=== PATIENT | female | born 1945 | race Caucasian/White ===

== ENCOUNTER → 2018-04-23 14:45 | Outpatient (CLI) | payer MEDICARE, SELFPAY ==
[2018-04-23 15:18] LABS: Hematocrit 31.1 % (36-46); Hemoglobin 10.5 g/dL (12.0-16.0); Mean Corpuscular HGB Conc 33.7 % (30-36); Mean Corpuscular Hemoglobin 28.2 PG (26-34); Mean Corpuscular Volume 83.5 fL (80-100); Platelet Count 343 X10^3/uL (150-400); Red Blood Cell Count 3.73 X10^6/uL (4.0-5.2); Red Cell Distribution Width 17.8 % (11.6-14.8); White Blood Cell Count 6.4 X10^3/uL (4.5-11.0)
[2018-04-23 15:19] LABS: Add Manual Diff / Slide Review YES
[2018-04-23 15:31] LABS: Alanine Aminotransferase 36 IU/L (9-52); Albumin 4.3 g/dL (3.5-5.0); Albumin Globulin Ratio 1.5 (1.0-2.8); Alkaline Phosphatase 98 U/L (38-126); Aspartate Aminotransferase 41 IU/L (14-36); Bilirubin Total 1.4 mg/dL (0.2-1.3); Blood Urea Nitrogen 15 mg/dL (7-17); Calcium 9.4 mg/dL (8.4-10.2); Carbon Dioxide 34 mmol/L (22-32); Chloride 95 mmol/L (98-107); Estimated Glomerular Filt Rate > 60.0 mL/min (>60); Globulin 2.9 g/dL (1.7-4.1); Glucose 100 mg/dL (80-110); HEMOLYSIS 17 (0-50); Potassium 4.1 mmol/L (3.4-5.1); Sodium 134 mmol/L (137-145); Total Protein 7.2 g/dL (6.3-8.2)
[2018-04-23 15:47] LABS: Neutrophils Absolute Manual 3776 /uL (3000-5900); Nucleated Red Blood Cells 1 #/Diff; Total Cells Counted 100
[2018-04-23 15:48] LABS: Anisocytosis 1+; Polychromasia 3+
== END ==
PROVIDERS: Family Provider Internal Medicine; PCP Internal Medicine; Visit Provider Internal Medicine
DX: D75.81 Myelofibrosis (principal)
CPT/HCPCS: 36415; 80053; 84443; 85025

== ENCOUNTER → 2018-06-02 13:56 | Outpatient (CLI) | payer MEDICARE, SELFPAY ==
[2018-06-02 14:32] LABS: Hematocrit 31.7 % (36-46); Hemoglobin 10.7 g/dL (12.0-16.0); Mean Corpuscular HGB Conc 33.9 % (30-36); Mean Corpuscular Hemoglobin 27.9 PG (26-34); Mean Corpuscular Volume 82.3 fL (80-100); Platelet Count 377 X10^3/uL (150-400); Red Blood Cell Count 3.85 X10^6/uL (4.0-5.2); Red Cell Distribution Width 17.6 % (11.6-14.8); White Blood Cell Count 6.9 X10^3/uL (4.5-11.0)
[2018-06-02 14:33] LABS: Add Manual Diff / Slide Review YES
[2018-06-02 14:51] LABS: Alanine Aminotransferase 27 IU/L (9-52); Albumin 4.3 g/dL (3.5-5.0); Albumin Globulin Ratio 1.5 (1.0-2.8); Alkaline Phosphatase 90 U/L (38-126); Aspartate Aminotransferase 34 IU/L (14-36); Bilirubin Total 1.4 mg/dL (0.2-1.3); Blood Urea Nitrogen 18 mg/dL (7-17); Calcium 9.3 mg/dL (8.4-10.2); Carbon Dioxide 31 mmol/L (22-32); Chloride 97 mmol/L (98-107); Estimated Glomerular Filt Rate > 60.0 mL/min (>60); Globulin 2.9 g/dL (1.7-4.1); Glucose 118 mg/dL (80-110); HEMOLYSIS < 15 (0-50); Potassium 4.1 mmol/L (3.4-5.1); Sodium 137 mmol/L (137-145); Total Protein 7.2 g/dL (6.3-8.2)
[2018-06-02 15:42] LABS: T4 Total Thyroxine 7.06 ug/dL (5.5-11.0)
[2018-06-02 15:56] LABS: Thyroid Stimulating Hormone 2.11 uIU/mL (0.47-4.68)
[2018-06-02 17:22] LABS: Neutrophils Absolute Manual 4554 /uL (3000-5900); Total Cells Counted 100
[2018-06-02 17:23] LABS: Anisocytosis 1+; Ovalocytes 1+; Poikilocytosis 1+; Tear Drop Cells 1+
== END ==
PROVIDERS: Family Provider Internal Medicine; PCP Internal Medicine; Visit Provider Nurse Practitioner Gerontology
DX: E03.9 Hypothyroidism, unspecified (principal); D47.3 Essential (hemorrhagic) thrombocythemia
CPT/HCPCS: 36415; 80053; 84436; 84443; 85025

== ENCOUNTER → 2018-06-17 13:28 | Outpatient (CLI) | payer MEDICARE, SELFPAY ==
--- NOTE | 2018-06-17 | DI.CT.S_ITS ---
PROCEDURE: CT MASTOID TEMPORAL INDICATIONS: MYELOFIBROSIS COMPARISON: [facility], CT, C-SPINE WITHOUT CONTRAST, 01/01/2018, 15:10. TECHNIQUE: Noncontrast 0.6 mm thick direct axial and coronal sections acquired through each temporal bone separately. FINDINGS: Image quality: Excellent. RIGHT: External auditory canal: Canal has a normal appearance. Middle ear: The middle ear structures, including the ossicles and tympanic membrane, appear normal. No abnormal fluid or soft tissue density. Inner ear: Inner ear is normally formed and appears unremarkable. Facial nerve appears normal throughout is course. Mastoids: Mastoid air cells are clear. LEFT: External auditory canal: Canal has a normal appearance. Middle ear: The middle ear structures, including the ossicles and tympanic membrane, appear normal. No abnormal fluid or soft tissue density. Inner ear: Inner ear is normally formed and appears unremarkable. Facial nerve appears normal throughout its course. Mastoids: Mastoid air cells are clear. MISCELLANEOUS: Visualized surrounding bones appear unremarkable. Visualized intracranial structures, including the cerebellopontine angle cisterns, appear normal. The central skull base and visualized bones of the cervical spine demonstrate an abnormal appearance, with a diffusely chalky appearance, with areas of demineralization. IMPRESSION: The central skull base and the visualized cervical spine demonstrate an abnormal appearance to the bone marrow, with a chalky, coarse appearance, with areas of demineralization. The abnormal appearance of the cervical spine is better demonstrated on the prior CT dated 01/01/18. No imaging explanation is found for mastoid pain. Dictated by: Cesar Martinez M.D. on 06/17/2018 at 14:14 Approved by: Cesar Martinez M.D. on 06/17/2018 at 14:20
== END ==
PROVIDERS: Family Provider Internal Medicine; PCP Internal Medicine; Visit Provider Specialist
DX: D47.1 Chronic myeloproliferative disease (principal); H90.3 Sensorineural hearing loss, bilateral
CPT/HCPCS: 70480

== ENCOUNTER → 2018-07-28 15:23 | Outpatient (CLI) | payer MEDICARE, SELFPAY ==
[2018-07-28 17:09] LABS: Hemoglobin 10.3 g/dL (12.0-16.0)
[2018-07-28 17:22] LABS: Mean Corpuscular HGB Conc 33.3 % (30-36); Mean Corpuscular Hemoglobin 27.5 PG (26-34); Mean Corpuscular Volume 82.8 fL (80-100); Platelet Count 381 X10^3/uL (150-400); Red Blood Cell Count 3.74 X10^6/uL (4.0-5.2); Red Cell Distribution Width 17.9 % (11.6-14.8); White Blood Cell Count 6.5 X10^3/uL (4.5-11.0)
[2018-07-28 17:29] LABS: Alanine Aminotransferase 23 IU/L (9-52); Albumin 4.3 g/dL (3.5-5.0); Albumin Globulin Ratio 1.6 (1.0-2.8); Alkaline Phosphatase 84 U/L (38-126); Aspartate Aminotransferase 26 IU/L (14-36); Bilirubin Total 1.3 mg/dL (0.2-1.3); Blood Urea Nitrogen 14 mg/dL (7-17); Calcium 9.3 mg/dL (8.4-10.2); Carbon Dioxide 34 mmol/L (22-32); Chloride 97 mmol/L (98-107); Estimated Glomerular Filt Rate > 60.0 mL/min (>60); Globulin 2.7 g/dL (1.7-4.1); Glucose 85 mg/dL (80-110); HEMOLYSIS < 15 (0-50); Sodium 136 mmol/L (137-145)
[2018-07-28 18:26] LABS: Neutrophils Absolute Manual 3250 /uL (3000-5900); Nucleated Red Blood Cells 5 #/Diff; Total Cells Counted 100
[2018-07-28 18:32] LABS: Anisocytosis 1+; Poikilocytosis 2+; Polychromasia 2+; Schistocytes 1+
[2018-07-28 18:33] LABS: Tear Drop Cells 2+
== END ==
PROVIDERS: Family Provider Internal Medicine; PCP Internal Medicine; Visit Provider Internal Medicine
DX: D69.3 Immune thrombocytopenic purpura (principal); D75.81 Myelofibrosis; R16.1 Splenomegaly, not elsewhere classified
CPT/HCPCS: 36415; 80053; 85025

== ENCOUNTER → 2018-07-31 13:23 | Outpatient (CLI) | payer MEDICARE, SELFPAY ==
--- NOTE | 2018-07-31 | DI.CT.S_ITS ---
PROCEDURE: CT ABDOMEN PELVIS W CON INDICATIONS: Myelofibrosis TECHNIQUE: After the administration of oral and intravenous contrast, 5 mm thick sections acquired from the diaphragms to the symphysis. 5 mm thick coronal and sagittal reformats were performed. For radiation dose reduction, the following was used: automated exposure control, adjustment of mA and/or kV according to patient size. COMPARISON: [facility], CT, ABDOMEN/PELVIS WITH CONTRAST, 02/22/2017, 1:06. FINDINGS: Image quality: Excellent. ABDOMEN: Lung bases: Right greater than left bibasilar pulmonary scarring is present, as before. Mucous plugging within the right lower lobe is present. Heart size is normal. Solid organs: Liver is enlarged, measuring 21 cm craniocaudal. Right and left hepatic lobe hemangiomata are present, as before. Few scattered subcentimeter hepatic cysts are unchanged.. Gallbladder demonstrates multiple calculi within its lumen. Biliary system is non-dilated. Pancreas enhances normally. Spleen is enlarged, as before, currently measuring roughly 818 cm craniocaudal. The No adrenal nodules. Kidneys are normal in size and enhancement, without hydronephrosis. Peritoneum and bowel: Stomach, small bowel, and colon loops are normal in caliber and wall thickness. Normal appendix. No free fluid or air. Nodes and vessels: No retroperitoneal or mesenteric adenopathy. Aorta and inferior vena cava are normal in caliber. Miscellaneous: No ventral hernias. PELVIS: Genitourinary: Bladder wall thickness is normal. Miscellaneous: No inguinal hernias or adenopathy. Decreased right inguinal soft tissue density is present. Bones: No suspicious bony lesions. No vertebral body compression fractures. IMPRESSION: 1. No change in hepatosplenomegaly. 2. Decreasing right inguinal soft tissue density. 3. Right lower lobe mucous plugging. 4. Normal appendix. Dictated by: Liliane Zelaya M.D. on 07/31/2018 at 14:49 Approved by: Liliane Zelaya M.D. on 07/31/2018 at 14:55
== END ==
PROVIDERS: Family Provider Internal Medicine; PCP Internal Medicine; Visit Provider Internal Medicine
DX: R16.2 Hepatomegaly with splenomegaly, not elsewhere classified (principal); D75.81 Myelofibrosis
CPT/HCPCS: 74177; Q9967

== ENCOUNTER → 2018-08-31 14:01 | Outpatient (CLI) | payer MEDICARE, SELFPAY ==
[2018-08-31 14:37] LABS: Hematocrit 31.8 % (36-46); Hemoglobin 10.7 g/dL (12.0-16.0); Mean Corpuscular HGB Conc 33.7 % (30-36); Mean Corpuscular Hemoglobin 27.8 PG (26-34); Mean Corpuscular Volume 82.4 fL (80-100); Platelet Count 422 X10^3/uL (150-400); Red Blood Cell Count 3.86 X10^6/uL (4.0-5.2); Red Cell Distribution Width 18.2 % (11.6-14.8); White Blood Cell Count 6.4 X10^3/uL (4.5-11.0)
[2018-08-31 14:39] LABS: Add Manual Diff / Slide Review YES; Alanine Aminotransferase 31 IU/L (9-52); Albumin 4.4 g/dL (3.5-5.0); Albumin Globulin Ratio 1.5 (1.0-2.8); Alkaline Phosphatase 84 U/L (38-126); Aspartate Aminotransferase 30 IU/L (14-36); BUN Creatinine Ratio 26.7 (6-22); Bilirubin Total 1.1 mg/dL (0.2-1.3); Blood Urea Nitrogen 16 mg/dL (7-17); Calcium 9.2 mg/dL (8.4-10.2); Carbon Dioxide 30 mmol/L (22-32); Chloride 97 mmol/L (98-107); Estimated Glomerular Filt Rate > 60.0 mL/min (>60); Globulin 2.9 g/dL (1.7-4.1); Glucose 117 mg/dL (80-110); HEMOLYSIS < 15 (0-50); Potassium 4.2 mmol/L (3.4-5.1); Sodium 137 mmol/L (137-145); Total Protein 7.3 g/dL (6.3-8.2)
[2018-08-31 15:23] LABS: Neutrophils Absolute Manual 4480 /uL (3000-5900); Total Cells Counted 100
[2018-08-31 15:24] LABS: Nucleated Red Blood Cells 1 #/Diff
[2018-08-31 15:25] LABS: Anisocytosis 2+; Hypochromasia 1+; Microcytosis 1+; Polychromasia 1+; Tear Drop Cells 2+
== END ==
PROVIDERS: Family Provider Internal Medicine; PCP Internal Medicine
DX: D47.3 Essential (hemorrhagic) thrombocythemia (principal); D75.81 Myelofibrosis; R16.1 Splenomegaly, not elsewhere classified
CPT/HCPCS: 36415; 80053; 85025

== ENCOUNTER → 2018-12-01 15:00 | Outpatient (CLI) | payer MEDICARE, SELFPAY ==
[2018-12-01 15:29] LABS: Alanine Aminotransferase 33 IU/L (9-52); Albumin 4.5 g/dL (3.5-5.0); Albumin Globulin Ratio 1.7 (1.0-2.8); Alkaline Phosphatase 80 U/L (38-126); Aspartate Aminotransferase 25 IU/L (14-36); BUN Creatinine Ratio 31.7 (6-22); Bilirubin Total 1.2 mg/dL (0.2-1.3); Blood Urea Nitrogen 19 mg/dL (7-17); Calcium 9.4 mg/dL (8.4-10.2); Carbon Dioxide 31 mmol/L (22-32); Chloride 96 mmol/L (98-107); Estimated Glomerular Filt Rate > 60.0 mL/min (>60); Globulin 2.6 g/dL (1.7-4.1); Glucose 93 mg/dL (80-110); HEMOLYSIS < 15 (0-50); Potassium 4.1 mmol/L (3.4-5.1); Sodium 135 mmol/L (137-145); Total Protein 7.1 g/dL (6.3-8.2)
[2018-12-01 15:36] LABS: Add Manual Diff / Slide Review NO; Basophils Absolute Auto 200 /uL (0-100); Eosinophils Absolute Auto 0 /uL (0-450); Eosinophils Percent Auto 0.2 % (2-4); Hematocrit 30.8 % (36-46); Hemoglobin 10.6 g/dL (12.0-16.0); Lymphocytes Absolute Auto 1200 /uL (1100-4500); Mean Corpuscular HGB Conc 34.3 % (30-36); Mean Corpuscular Hemoglobin 27.8 PG (26-34); Mean Corpuscular Volume 80.9 fL (80-100); Monocytes Absolute Auto 1100 /uL (0-900); Neutrophils Absolute Auto 5200 /uL (1500-7000); Neutrophils Percent Auto 66.8 % (50-75); Platelet Count 475 X10^3/uL (150-400); Red Blood Cell Count 3.81 X10^6/uL (4.0-5.2); Red Cell Distribution Width 18.2 % (11.6-14.8); White Blood Cell Count 7.7 X10^3/uL (4.5-11.0)
== END ==
PROVIDERS: Family Provider Internal Medicine; PCP Internal Medicine
DX: D47.3 Essential (hemorrhagic) thrombocythemia (principal); R16.1 Splenomegaly, not elsewhere classified
CPT/HCPCS: 36415; 80053; 85025

== ENCOUNTER → 2019-03-29 13:53 | Outpatient (CLI) | payer MEDICARE, SELFPAY ==
--- NOTE | 2019-03-29 15:18 | DIET.PN ---
Ht. 5?2 Wt: 85# BMI: 15.5 (very low) Current condition: Myelofibrosis, Irritable Bowel Syndrome-unspecified type, Unintended Wt. Loss Med Hx: 4.5y since condition dx, losing wt since then though wt has been below 95# for a year or longer, feels she is maintaining it fairly well with small frequent meals. Primary concern: Abd px limits the ability to pass BM Has 1 painful BM/week, usually small cracked pellets, constipated type. Usual Intake: B: 1 scrambled egg c 1/8 avocado; L: 1 sl white bread c 1.5oz tuna or salmon or PB&J, herbal tea; D: noodles c peas; Sn: Odwalla Soy Chocolate Protein drink, Gatorade, jello, crackers and cheese, banana. Meds/Supps: Opioids, stool softeners, Mag Citrate 500mg, gaviscon, MVI Assessment: MR is experiencing infrequent, painful BMs d/t being chronically dehydrated complicated by opioid use, myelofibrosis causing enlarged spleen and liver partially blocking transit, and reduced activity levels, all reducing gut motility. Additionally, increased fat is added to diet to slow wt loss, which increases satiety of pt who experiences early satiety. Interventions: To address infrequent, painful BMs: Continue Mag Citrate 500mg every evening to keep on top of BM regularity, stool softeners prn. Continue c probiotic supp and include 1/4c Elise?s yogurt or kefir (dairy or soy)/d as food based probiotic. Introduce 1 serving every 3 d for a week and advance to daily as tolerated. Start colon massage technique and bicycle movements c legs daily to aid in L.I. motility since you are sedentary and have enlarged spleen and liver (near curving segments of LI). Hydration will help reduce px and keep stool softer. Pt currently only drinking small amts of Odwalla shake and sips of water c meds (under 20 oz/d). Set goal to get at least 32oz by having water cups with straws by bed, desk, and other frequented areas. Take a sip during each commercial break or at each new book chapter. Pt would like to drink hot chocolate more frequently to increase fluids and calories, also adding chicken stock to dinner of noodles c peas. To address unintended wt loss: Focus on adding protein to diet rather than fat (animal meat, eggs, dairy if tolerated, ground nuts and seeds, beans as tolerated). Though added fat is fine, too, just know it can cause satiety. Monitoring/Evaluation: Pt will follow up c RD in two weeks to report progress and symptoms.
== END ==
PROVIDERS: Family Provider Internal Medicine; PCP Internal Medicine; Visit Provider Physician Assistant
DX: R63.4 Abnormal weight loss (principal); D75.81 Myelofibrosis
CPT/HCPCS: 97802

== ENCOUNTER → 2019-04-07 14:08 | Outpatient (CLI) | payer MEDICARE, SELFPAY ==
--- NOTE | 2019-04-07 | DI.RAD.S_ITS ---
PROCEDURE: XR PELVIS 1-2V INDICATIONS: LOW BACK PAIN TECHNIQUE: A single frontal view of the pelvis acquired. COMPARISON: [facility], CT, CT ABDOMEN PELVIS W CON, 07/31/2018, 14:06. [facility], CR, L-SPINE 2-3 VIEWS, 01/20/2017, 14:49. [facility], CR, ABDOMEN ACUTE SERIES, 02/24/2017, 4:10. FINDINGS: Bones: No fractures or dislocations. No focal suspicious bony lesions. There is a subtle permeative elevated radiodensity throughout the osseous elements included on this study but best seen at the obturator rings and each femur through the femoral heads. Soft tissues: Visualized bowel gas pattern is normal. No suspicious soft tissue calcifications. IMPRESSION: Unusual increased radiodensity of the osseous elements of the pelvis, a relatively subtle finding, and generalized rather than focal. The appearance may represent a manifestation of myelodysplastic syndrome. Please correlate clinically. Dictated by: Marty Cisneros M.D. on 04/07/2019 at 15:40 Approved by: Marty Cisneros M.D. on 04/07/2019 at 15:43
--- NOTE | 2019-04-07 | DI.RAD.S_ITS ---
PROCEDURE: XR LUMBAR SPINE 2-3V INDICATIONS: LOW BACK PAIN TECHNIQUE: 3 views of the lumbar spine were acquired. COMPARISON: [facility], CT, ABDOMEN/PELVIS WITH CONTRAST, 02/22/2017, 1:06. [facility], CR, L-SPINE 2-3 VIEWS, 11/03/2017, 14:26. [facility], CR, L-SPINE 2-3 VIEWS, 01/20/2017, 14:49. FINDINGS: Bones: 5 [id number] vertebrae are present. There is levoscoliotic bony alignment, moderate in severity, centered at L1.. No vertebral body compression fractures. No suspicious bony lesions. Soft tissues: Overlying bowel gas pattern is normal. No suspicious soft tissue calcifications. IMPRESSION: Chronic levoscoliosis centered at L1. Facet gallstones are unusually low within the abdomen, centered at over the right lower quadrant. These have been documented to be in that same position on CT scanning 02/22/17. Considering the advanced age the radiodensity of the osseous elements of the axial and appendicular skeleton are increased from what is generally seen, in a pattern also seen clearly on additional plain film imaging obtained today. Some form of myeloproliferative disorder would be suspected such as myelofibrosis. No associated fracture is seen. Dictated by: Marty Cisneros M.D. on 04/07/2019 at 16:03 Approved by: Marty Cisneros M.D. on 04/07/2019 at 16:06
--- NOTE | 2019-04-07 | DI.RAD.S_ITS ---
PROCEDURE: XR HUMERUS LT 2V INDICATIONS: L SHOULDER PAIN TECHNIQUE: 2 views of the humerus were acquired. COMPARISON: None. FINDINGS: Bones: No fractures or dislocations. No suspicious bony lesions. Soft tissues: No suspicious soft tissue calcifications. IMPRESSION: No trauma to the humerus is found. Dictated by: Marty Cisneros M.D. on 04/07/2019 at 16:06 Approved by: Marty Cisneros M.D. on 04/07/2019 at 16:06
--- NOTE | 2019-04-07 | DI.RAD.S_ITS ---
PROCEDURE: XR SHOULDER LT MIN 2V INDICATIONS: L SHOULDER PAIN TECHNIQUE: 3 views of the shoulder were acquired. COMPARISON: [facility], SHOULDER MINIMUM 2 VIEW LEFT, 06/05/2016, 10:37. [facility], CHEST 2 VIEW, 05/19/2015, 9:58. [facility], SHOULDER MINIMUM 2VIEW RIGHT, 06/05/2016, 10:37. [facility], SHOULDER MINIMUM 2VIEW RIGHT, 01/29/2008, 12:13. FINDINGS: Bones: No fractures or dislocations. No suspicious bony lesions involving the chest wall but there is relative sclerosis through the humeral head at its upper and middle thirds. The. Visualized ribs appear intact. Soft tissues: No suspicious soft tissue calcifications. IMPRESSION: Source of shoulder pain is not identified as a new abnormality. 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 Note is made of relative sclerosis is over the humeral head through its upper and middle thirds and is unusual symptomatology is present potentially a manifestation of infection or neoplasm shoulder MRI without and with contrast would be recommended. Dictated by: Marty Cisneros M.D. on 04/07/2019 at 15:37 Approved by: Marty Cisneros M.D. on 04/07/2019 at 15:39
== END ==
PROVIDERS: Family Provider Internal Medicine; PCP Internal Medicine; Visit Provider Internal Medicine
DX: M54.5 Low back pain (principal); M25.512 Pain in left shoulder; M19.012 Primary osteoarthritis, left shoulder; M41.86 Other forms of scoliosis, lumbar region; K80.80 Other cholelithiasis without obstruction
CPT/HCPCS: 72100; 72170; 73030; 73060

== ENCOUNTER → 2019-06-29 15:00 | Oncology outpatient (ONC) | payer MEDICARE, SELFPAY ==
--- NOTE | 2018-02-09 14:35 | ONC.APRN.PN ---
PN -Subjective Interval history: Stefani is a 72-year-old female who carries a diagnosis of essential thrombocythemia previously treated with jakafi until November 2016 when she determined she was not feeling better with jakafi was in fact feeling worse. She elected to discontinue more aggressive treatment and transitioned to, per her report, symptom management only. Home Medications and Allergies Home Medications Medication Instructions Recorded Confirmed Type [Probiotics] #0 06/05/16 History [CBD 3%] PRN #0 09/16/16 History caffeine [No Doz] 50 mg PO QDAY #0 11/06/16 History ibuprofen 200 mg PO PRN PRN #0 12/23/16 History morphine concentrate 0.1 - 0.5 mg PO PRN PRN #0 03/12/17 History oxycodone 5 mg PO Q6HP PRN #0 03/12/17 History [DE LA ROSA LAXATIVE] 1 PO Q DAY #0 11/28/17 History [TINCTURE] PO Q DAY PRN PRN #0 11/28/17 History multivitamin [Multiple Vitamins] 2 PO QDAY #0 11/28/17 History ranitidine HCl [Zantac] 150 mg PO QDAY #0 11/28/17 History simethicone [Gas-X Extra Strength] 125 mg PO #0 11/28/17 History venlafaxine [Effexor XR] 37.5 mg PO QDAY #0 11/28/17 History [CBD CREAM] #0 01/13/18 History Allergies Allergy/AdvReac Type Severity Reaction Status Date / Time latex Allergy Mild RASH Unverified 01/14/18 13:05 [address]ium [address] SCAN Unverified 01/14/18 13:05 CONTRAST erythromycin base Allergy Unknown OPHTH OINT Unverified 01/14/18 13:05 methocarbamol AdvReac Mild HEADACHE Unverified 01/14/18 13:05 tramadol AdvReac Mild HEADACHE Unverified 01/14/18 13:05 CHLORAHEXADINE AND CHLORAPREP Allergy Unknown RASH Uncoded 01/14/18 13:05
[2018-02-09 15:15] VITALS: BP 135/72; PULSE 73; RESP 16; TEMP 36.9; O2SAT 100
--- NOTE | 2018-02-13 08:47 | ONC.APRN.PN ---
Assessment and Plan (1) Essential (hemorrhagic) thrombocythemia Current visit: Yes Status: Acute (2) Splenomegaly Current visit: No Status: Acute 02/13/18 08:51 Stefani is a 72-year-old female with a history of essential thrombocytopenia presenting with symptomatic splenomegaly as well as symptomatic bony pain. She was previously treated with Jakafi until November of 2016. Note patient was only taking this medication intermittently is likely she did not receive the full therapeutic benefit. However she was feeling worse on the medication and elected to DC and pursue symptom management only. Dr Adam saw the pt 01/13/18 and recommeneded palliative radiation to spleen and bony areas. Stefani states her to sit in a car more than 5 or 10 min thus any travel outside of [place] is not possible. She did not consult with radiation oncology. She has no plans to seek care other than symptom management. Her primary care provider Dr. López has been doing an excellent job managing this patient's pain as well as meeting her stated goals of remaining mentally clear. She does not think the fentanyl patch 12 mcg is affective she has not decreased her use of breakthrough pain medication. I did discuss with the patient there are some studies that show sentinel patch is not effective in thin patient's, it does require some adipose tissue for absorption. Thus, she is likely not getting the full therapeutic benefit of the patch. However due to convenience of the patch she would like to continue recommend increasing dose until she is able to reduce the amount of breakthrough pain medication she requires. Also strongly recommend she stay on top of bowel meds. She is high risk for obstruction. Return to clinic in 3 months provider visit CBC CMP. Patient wishes to continue being seen at this clinic also her primary care provider. She understands given we are not providing any treatment per se for her essential thrombocythemia, myelofibrosis, associated hepatosplenomegaly we are however happy to be another set of eyes and ears for her. 02/13/18 09:46 - Time Spent with Patient 35 minutes PN -Subjective Interval history: Stefani is a 72-year-old female who carries a diagnosis of essential thrombocythemia with associated myelofibrosis previously treated with jakafi until November 2016 when she determined she was not feeling better with jakafi was in fact feeling worse. She elected to discontinue more aggressive treatment and transitioned to, per her report, symptom management only. She presents today for interval follow up. She was last seen by Dr Adam 01/13/2018 he recommended palliative radiation to her spleen and possibly some bony lesions which continue to cause her significant pain. He discussed with the patient scheduling appointment with radiation oncology. He also had a telephone consult with Dr. Wanda Montes De Oca MD in [place] and Dr Mcpherson [facility] to review radiation options. Pt was encouraged to schedule consult. Dr Adam started the pt on duragesic patch 12.5mg. Today Stefani presents today to discuss Pain management. She does not feel as though the fentanyl patch has been affective. She has been on the 12 mcg dose for 2 weeks now. She has not noticed any decreased use of her breakthrough pain medicine oxycodone. Bowel movements are stable. She rates her pain as almost a 7 or 8 constantly. Her goal is to get it down to a 5. She did not follow up with radiation oncology as discussed with Dr. arina cabrera. Patient states she is completely on able to ride in a car for more than a few minutes. Thus, going to [facility] per her report is Out of the question. She again states today she wants her pain better managed and she wants to remain mentally clear. Per both her report and her husbands report she spends greater than 50% of her day asleep in bed. Stefani defers exam today also defers blood work. - Patient Self-Reported Symptoms SR Constitution: Fatigue/Malaise, Night Sweats, Weight loss/gain SR ears, nose, mouth, throat issues: Mouth sores SR respiratory issues: Cough SR Gastrointestinal issues: Abdominal pain, Constipation, Diarrhea SR Genitourinary issues: Incontinence SR Musculoskeletal issues: Back or neck pain, Bone pain SR Neuro issues: Headache Results - Imaging Additional studies: Procedures Esophagogastroduodenoscopy [EGD] with closed biopsy (07/11/14) Injection or infusion of other therapeutic or prophylactic substance (08/16/14) Home Medications and Allergies Home Medications Medication Instructions Recorded Confirmed Type [Probiotics] #0 06/05/16 History [CBD 3%] PRN #0 09/16/16 History caffeine [No Doz] 50 mg PO QDAY #0 11/06/16 History morphine concentrate 0.1 - 0.5 mg PO PRN PRN #0 03/12/17 History oxycodone 5 mg PO Q6HP PRN #0 03/12/17 History [DE LA ROSA LAXATIVE] 1 PO Q DAY #0 11/28/17 History [TINCTURE] PO Q DAY PRN PRN #0 11/28/17 History multivitamin [Multiple Vitamins] 2 PO QDAY #0 11/28/17 History ranitidine HCl [Zantac] 150 mg PO QDAY #0 11/28/17 History simethicone [Gas-X Extra Strength] 125 mg PO #0 11/28/17 History venlafaxine [Effexor XR] 37.5 mg PO QDAY #0 11/28/17 History [CBD CREAM] #0 01/13/18 History fentanyl 1 patch TRANSDERMAL Q72H 02/09/18 02/09/18 History Allergies Allergy/AdvReac Type Severity Reaction Status Date / Time latex Allergy Mild RASH Unverified 01/14/18 13:05 barium iodide [address]ergy Unknown CT SCAN Unverified 01/14/18 13:05 CONTRAST erythromycin base Allergy Unknown OPHTH OINT Unverified 01/14/18 13:05 methocarbamol AdvReac Mild HEADACHE Unverified 01/14/18 13:05 tramadol AdvReac Mild HEADACHE Unverified 01/14/18 13:05 CHLORAHEXADINE AND CHLORAPREP Allergy Unknown RASH Uncoded 01/14/18 13:05 Exam Vital signs: Last Vital Signs Temp 98.5 F 02/09/18 15:15 Pulse 73 02/09/18 15:15 Resp 16 02/09/18 15:15 BP 135/72 H 02/09/18 15:15 Pulse Ox 100 02/09/18 15:15 Narrative: Stefani declines exam today - Constitutional positive no acute distress, positive thin Comments: borderline cachestic with bony prominences evident through clothing - Routine HEENT Exam Head: Present: normocephalic - Routine Skin Exam Present: intact. Absent: erythema, petechiae - Routine Neurological Exam Present: alert, oriented X3, vision grossly intact, hearing grossly intact - Routine Psychiatric Exam Present: normal affect, normal thought process - Additional findings Additional findings: ambulates with a steady gait, get up and go <3 seconds
[2018-02-13 09:02] VITALS: BP 138/73; PULSE 72; RESP 18; TEMP 36.8; O2SAT 98
[2018-06-03 11:37] VITALS: BP 136/67; PULSE 72; RESP 15; TEMP 36.7; O2SAT 98
--- NOTE | 2018-06-03 12:10 | P.PNONC_ITS ---
Assessment and Plan (1) Myelofibrosis Problem details: 72-year-old woman with myelofibrosis and splenomegaly. Her blood counts are stable and she is not requiring transfusions. She does have significant bony pain as well as splenomegaly and constitutional symptoms. She is not really interested in pursuing any more systemic therapy instead is focusing on quality of life. I think her pain control is reasonably good at this point with the higher dose of fentanyl and oxycodone for breakthrough. Her weight seems to be holding fairly stable. She will return to clinic in about 3 months for follow-up. I think would be reasonable to check counts in between if her symptoms worsen. If her performance status were to worsen or if she were to develop worsening counts, it might be reasonable to consider hospice. Currently, I am not sure that she meets the 6 months requirement for prognosis. Current visit: No Status: Acute PN -Subjective Interval history: Stefani is a 72-year-old female who carries a diagnosis of essential thrombocythemia with associated myelofibrosis previously treated with jakafi until November 2016 when she determined she was not feeling better with jakafi was in fact feeling worse. She elected to discontinue more aggressive treatment and transitioned to, per her report, symptom management only. She presents today for interval follow up. Since her last visit here, she has been feeling about the same. She has some ongoing pain in her pelvic bones hips and back. She has been using oxycodone and fentanyl patch. The dose of the fentanyl patch has been titrated up in over the last week or so she has been on 50 mcg an hour. This has been providing fairly good control over the night. On some days she has not needed any breakthrough oxycodone. However, if she is moving around more or needs to go out, then she will take the oxycodone. She has had some ongoing constipation and has been using stool softeners as well as milk of magnesia. Her appetite remains low. Over the last 3 months, she does not think that she has lost any additional weight. She denies any nausea or vomiting. She denies any fevers or chills but has had night sweats. She denies any shortness of breath or chest pain but does have cough that has been productive of some clearish sputum. She has not had any unusual bleeding or bruising. She denies any thrombotic complications. She has had chronic stable splenomegaly but has not wanted to pursue radiation therapy for it. She did take check a fee for a while in 2017 but it did not help with her quality of life. She did require transfusions while she was on it. Her biggest complaint then was fatigue. The myelofibrosis did arise during a pre- existing essential thrombocytosis which has been present since the early . 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 - Patient Self-Reported Symptoms SR Constitution: Weight loss/gain, Night Sweats SR ears, nose, mouth, throat issues: Cough, Mouth sores SR respiratory issues: Cough, Mucous SR Cardiovascular issues: Dizzy/lightheaded SR Skin issues: Skin rash or itching SR Gastrointestinal issues: Diarrhea, Constipation, Abdominal pain SR Genitourinary issues: Incontinence SR Musculoskeletal issues: Muscle weakness, Back or neck pain, Bone pain SR Neuro issues: Headache, Lightheaded/dizzy Results - Imaging Additional studies: Procedures Esophagogastroduodenoscopy [EGD] with closed biopsy (07/11/14) Injection or infusion of other therapeutic or prophylactic substance (08/16/14) Home Medications and Allergies Home Medications Medication Instructions Recorded Confirmed Type [Probiotics] 1 cap/day PO DAILY #0 06/05/16 06/03/18 History [CBD 3%] 1 applic TOPICAL PRN PRN #0 09/16/16 06/03/18 History caffeine [No Doz] 50 mg PO QDAY #0 11/06/16 06/03/18 History morphine concentrate 0.1 - 0.5 mg PO PRN PRN #0 03/12/17 06/03/18 History oxycodone 2 - 5 mg PO Q6HP PRN #0 03/12/17 06/03/18 History [DE LA ROSA LAXATIVE] 1 caplet PO Q DAY #0 11/28/17 06/03/18 History multivitamin [Multiple Vitamins] 2 tab PO QDAY #0 11/28/17 06/03/18 History simethicone [Gas-X Extra Strength] 125 mg PO DAILY #0 11/28/17 06/03/18 History venlafaxine [Effexor XR] 37.5 mg PO QDAY #0 11/28/17 06/03/18 History fentanyl [Duragesic] 1 patch TRANSDERMAL Q72H 02/09/18 06/03/18 History Biotene Moisturizing Mouth 1 applic DENTAL PRN PRN 06/03/18 06/03/18 History TENS units 06/03/18 06/03/18 History aluminum hydrox-magnesium carb 15 ml PO TID-QID PRN 06/03/18 06/03/18 History [Gaviscon] hyoscyamine sulfate 0.125 mg SUBLINGUAL BID-QID PRN 06/03/18 06/03/18 History ondansetron 4 mg PO TID PRN 06/03/18 06/03/18 History ranitidine HCl 150 mg PO DAILY 06/03/18 06/03/18 History Allergies Allergy/AdvReac Type Severity Reaction Status Date / Time latex Allergy Mild RASH Verified 06/03/18 11:44 barium iodide Allergy Unknown CT SCAN Verified 06/03/18 11:44 CONTRAST erythromycin base Allergy Unknown OPHTH OINT Verified 06/03/18 11:44 methocarbamol AdvReac Mild HEADACHE Verified 06/03/18 11:44 tramadol AdvReac Mild HEADACHE Verified 06/03/18 11:44 CHLORAHEXADINE AND CHLORAPREP Allergy Unknown RASH Uncoded 04/04/18 09:00 Exam Vital signs: Last Vital Signs Temp 98.1 F 06/03/18 11:37 Pulse 72 06/03/18 11:37 Resp 15 06/03/18 11:37 BP 136/67 H 06/03/18 11:37 Pulse Ox 98 06/03/18 11:37 - Constitutional positive no acute distress, positive thin, positive chronically ill appearing - Routine HEENT Exam Head: Present: normocephalic, atraumatic Eye: Present: EOMI. Absent: conjunctival icterus, scleral injection ENT: Present: mucous membranes moist, oropharynx clear - Routine Neck Exam Present: supple. Absent: lymphadenopathy, thyromegaly - Routine Respiratory Exam Present: Clear to auscultation bilaterally. Absent: rales, wheezes - Routine Cardiovascular Exam Present: RRR, S1, S2. Absent: murmur - Routine Abdominal Exam Present: soft, normoactive bowel sounds, tenderness Palpation/Percussion: Present: hepatomegaly, splenomegaly (The spleen tip is palpable at the level of the umbilicus) - Routine Extremities Exam Absent: cyanosis, clubbing, edema - Routine Skin Exam Absent: petechiae, rash - Routine Neurological Exam Present: alert, oriented X3 - Routine Psychiatric Exam Present: normal affect, normal thought process
[2018-09-02 11:47] VITALS: BP 147/73; PULSE 80; RESP 18; TEMP 36.8; O2SAT 100
--- NOTE | 2018-09-02 12:39 | ONC.PN ---
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 Previous treatment: 1. Jakafi in 2017 Interval history: Patient is a 73-year-old woman who returns today for follow-up of myelofibrosis. Since her last visit here, she has continued to feel reasonably well. She does have ongoing bony pain. She has been using a fentanyl patch as well as oxycodone. This is providing adequate relief. She does have ongoing trouble with constipation and has been using laxatives. She notes her appetite has been low but her weight has been relatively stable per. He denies any her vomiting. She does have early satiety. She has noted some cough and mucus production weekly when lying flat. She did have a CT scan of the chest done that showed mucus plugging. Denies any fevers or chills. She has not had any recent infections. She has not noted any adenopathy the. Strength and energy level have been low level. - Patient Self-Reported Symptoms SR Constitution: Fatigue/Malaise, Night Sweats SR ears, nose, mouth, throat issues: Cough SR respiratory issues: Cough, Mucous SR Cardiovascular issues: Dizzy/lightheaded SR Skin issues: Skin rash or itching SR Gastrointestinal issues: Diarrhea, Constipation SR Genitourinary issues: Incontinence SR Musculoskeletal issues: Back or neck pain, Bone pain SR Neuro issues: Headache, Lightheaded/dizzy Home Medications and Allergies Home Medications Medication Instructions Recorded Confirmed Type [Probiotics] 1 cap/day PO DAILY #0 06/05/16 09/02/18 History [CBD 3%] 1 applic TOPICAL PRN PRN #0 09/16/16 09/02/18 History caffeine [No Doz] 100 mg PO QDAY #0 11/06/16 09/02/18 History morphine concentrate 0.1 - 0.5 mg PO PRN PRN #0 03/12/17 09/02/18 History oxycodone 2 - 5 mg PO Q6HP PRN #0 03/12/17 09/02/18 History [DE LA ROSA LAXATIVE] 500 mg PO Q DAY #0 11/28/17 09/02/18 History multivitamin [Multiple Vitamins] 2 tab PO QDAY #0 11/28/17 09/02/18 History simethicone [Gas-X Extra Strength] 125 mg PO DAILY #0 11/28/17 09/02/18 History venlafaxine [Effexor XR] 37.5 mg PO QDAY #0 11/28/17 09/02/18 History fentanyl 1 patch TRANSDERMAL Q72H 02/09/18 09/02/18 History Biotene Moisturizing Mouth 1 applic DENTAL PRN PRN 06/03/18 09/02/18 History TENS units 06/03/18 09/02/18 History aluminum hydrox-magnesium carb 15 ml PO TID-QID PRN 06/03/18 09/02/18 History [Gaviscon] hyoscyamine sulfate 0.125 mg SUBLINGUAL BID-QID PRN 06/03/18 09/02/18 History ondansetron 4 mg PO TID PRN 06/03/18 09/02/18 History ranitidine HCl 150 mg PO DAILY 06/03/18 09/02/18 History Allergies Allergy/AdvReac Type Severity Reaction Status Date / Time latex Allergy Mild RASH Verified 06/03/18 11:44 barium iodide [address]ergy Unknown CT SCAN Verified 06/03/18 11:44 CONTRAST erythromycin base Allergy Unknown OPHTH OINT Verified 06/03/18 11:44 methocarbamol AdvReac Mild HEADACHE Verified 06/03/18 11:44 tramadol AdvReac Mild HEADACHE Verified 06/03/18 11:44 CHLORAHEXADINE AND CHLORAPREP Allergy Unknown RASH Uncoded 04/04/18 09:00 Exam - Constitutional positive no acute distress, positive thin - Routine HEENT Exam Head: Present: normocephalic, atraumatic Eye: Present: EOMI, PERRL. Absent: conjunctival icterus, scleral injection ENT: Present: mucous membranes moist, oropharynx clear - Routine Neck Exam Present: supple. Absent: lymphadenopathy, thyromegaly - Routine Respiratory Exam Present: Clear to auscultation bilaterally. Absent: rales, wheezes - Routine Cardiovascular Exam Present: RRR, S1, S2. Absent: murmur - Routine Abdominal Exam Present: soft, normoactive bowel sounds, organomegaly - Routine Extremities Exam Absent: edema - Routine Back/Spine Exam Back/Spine: Present: scoliosis - Routine Neurological Exam Present: alert, oriented X3 - Routine Psychiatric Exam Present: normal affect, normal thought process Results - Imaging Additional studies: Procedures Esophagogastroduodenoscopy [EGD] with closed biopsy (07/11/14) Injection or infusion of other therapeutic or prophylactic substance (08/16/14) Assessment and Plan (1) Myelofibrosis Problem details: 72-year-old woman with myelofibrosis and splenomegaly. Her blood counts are stable and she is not requiring transfusions. She does have significant bony pain as well as splenomegaly and constitutional symptoms. She is not really interested in pursuing any more systemic therapy instead is focusing on quality of life. Will discontinue to observe her expectantly. With her current pain regimen for now. She return to clinic in about 3 months for follow-up. Current visit: No Status: Acute
--- NOTE | 2018-09-09 14:01 | ONC.NAV ---
Description: Ensure samples Activity: Put together a bag of Enlive samples for pt to try. Her will be in to pick them up later today.
[2018-12-02 13:47] VITALS: BP 141/88; PULSE 83; RESP 20; TEMP 37.1; O2SAT 95
--- NOTE | 2018-12-02 14:18 | ONC.PN ---
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 Previous treatment: 1. Jakafi in 2017 Interval history: Patient is a 73-year-old woman who returns today for follow-up of myelofibrosis. Since her last visit here, she has continued to feel reasonably well. Over the last few days, she has been bothered by increased pain in the left upper quadrant. It seems to occur her most severely at night. She has been taking some short-acting morphine which has been helping. She has not had any nausea or vomiting. Her appetite has been stable. She does have chronic constipation but her bowel movements have not worsened. She denies any fevers chills or night sweats. No shortness of breath or cough. Strength and energy level have been fair. She has noted some pain in the right side of her neck radiating into the shoulder and up to the back of the head. She denies any other new aches or pains. She denies any other changes in her health. Her medications include fentanyl patch hyoscyamine morphine a multivitamin Zofran oxycodone effexor - Patient Self-Reported Symptoms SR Constitution: Weight loss/gain, Night Sweats SR ears, nose, mouth, throat issues: Cough, Mouth sores SR respiratory issues: Cough, Mucous SR Cardiovascular issues: Dizzy/lightheaded SR Skin issues: Skin rash or itching SR Gastrointestinal issues: Poor or no appetite, Constipation, Abdominal pain SR Genitourinary issues: Incontinence SR Musculoskeletal issues: Muscle weakness SR Neuro issues: Headache, Lightheaded/dizzy Home Medications and Allergies Home Medications Medication Instructions Recorded Confirmed Type [Probiotics] 1 cap/day PO DAILY #0 06/05/16 09/02/18 History [CBD 3%] 1 applic TOPICAL PRN PRN #0 09/16/16 09/02/18 History caffeine [No Doz] 100 mg PO QDAY #0 11/06/16 09/02/18 History morphine concentrate 0.1 - 0.5 mg PO PRN PRN #0 03/12/17 09/02/18 History oxycodone 2 - 5 mg PO Q6HP PRN #0 03/12/17 09/02/18 History [DE LA ROSA LAXATIVE] 500 mg PO Q DAY #0 11/28/17 09/02/18 History multivitamin [Multiple Vitamins] 2 tab PO QDAY #0 11/28/17 09/02/18 History simethicone [Gas-X Extra Strength] 125 mg PO DAILY #0 11/28/17 09/02/18 History venlafaxine [Effexor XR] 37.5 mg PO QDAY #0 11/28/17 09/02/18 History fentanyl 1 patch TRANSDERMAL Q72H 02/09/18 09/02/18 History Biotene Moisturizing Mouth 1 applic DENTAL PRN PRN 06/03/18 09/02/18 History TENS units 06/03/18 09/02/18 History aluminum hydrox-magnesium carb 15 ml PO TID-QID PRN 06/03/18 09/02/18 History [Gaviscon] hyoscyamine sulfate 0.125 mg SUBLINGUAL BID-QID PRN 06/03/18 09/02/18 History ondansetron 4 mg PO TID PRN 06/03/18 09/02/18 History ranitidine HCl 150 mg PO DAILY 06/03/18 09/02/18 History Allergies Allergy/AdvReac Type Severity Reaction Status Date / Time latex Allergy Mild RASH Verified 06/03/18 11:44 barium iodide Allergy Unknown CT SCAN Verified 06/03/18 11:44 CONTRAST erythromycin base Allergy Unknown OPHTH OINT Verified 06/03/18 11:44 methocarbamol AdvReac Mild HEADACHE Verified 06/03/18 11:44 tramadol AdvReac Mild HEADACHE Verified 06/03/18 11:44 CHLORAHEXADINE AND CHLORAPREP Allergy Unknown RASH Uncoded 04/04/18 09:00 Exam Vital signs: Vital Signs Temp Pulse Resp BP Pulse Ox 12/02/18 13:47 98.7 F 83 20 141/88 H 95 Intake and Output 12/01/18 12/02/18 12/02/18 23:59 07:59 15:59 Other: Weight 40.8 kg Patient Weight 12/03/18 07:59 Weight 40.8 kg - Constitutional positive no acute distress, positive thin - Routine HEENT Exam Head: Present: normocephalic, atraumatic Eye: Present: EOMI, PERRL. Absent: conjunctival icterus, scleral injection ENT: Present: mucous membranes moist, oropharynx clear - Routine Neck Exam Present: supple. Absent: lymphadenopathy, thyromegaly - Routine Respiratory Exam Present: Clear to auscultation bilaterally. Absent: rales, wheezes - Routine Cardiovascular Exam Present: RRR, S1, S2. Absent: murmur - Routine Abdominal Exam Present: soft, normoactive bowel sounds, organomegaly. Absent: tenderness Comments: She does have enlargement of the liver and the spleen. The spleen extends down about 4-5 fingerbreadths below the costal margin. The liver extends not quite to the level of the umbilicus. - Routine Extremities Exam Absent: cyanosis, clubbing, edema - Routine Back/Spine Exam Back/Spine: Absent: paraspinal tenderness, vertebral tenderness - Routine Skin Exam Present: intact, cyanosis - Routine Neurological Exam Present: alert, oriented X3 Results - Imaging Additional studies: Procedures Esophagogastroduodenoscopy [EGD] with closed biopsy (07/11/14) Injection or infusion of other therapeutic or prophylactic substance (08/16/14) Assessment and Plan (1) Myelofibrosis Problem details: 72-year-old woman with myelofibrosis and splenomegaly. Her blood counts are stable and she is not requiring transfusions. She does have significant bony pain as well as splenomegaly and constitutional symptoms. She will continue with her pain medications. It is possible that her increased abdominal pain is related to splenic infarct however if that were the case, no specific treatment would be available. Instead, I have recommended that she continue with her morphine as needed. She has been using a fentanyl patch but is not sure that as that is helping. Her is worried that she may not have enough fatty tissue to absorb it well. It might be reasonable to continue switching her to a long-acting preparation of morphine to see if that provide better pain relief. She will follow up with her primary physician regarding this next time she sees him. Current visit: No Status: Acute
[2019-06-29 15:10] VITALS: BP 140/78; PULSE 78; RESP 20; TEMP 36.9; O2SAT 96
--- NOTE | 2019-06-29 15:41 | P.PNONC_ITS ---
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 Previous treatment: 1. Jakafi in 2017 Interval history: Patient is a 73-year-old woman who returns today for follow-up of myelofibrosis. Since her last visit here, she has continued to feel reasonably well. She has been bothered however by intermittent abdominal pain. She thinks that her liver and spleen have enlarged in size. Her appetite has been low. She has been able to eat small meals frequently. She is not having any vomiting. She does have occasional diarrhea. She has also noted some night sweats and chills. She has not noticed any adenopathy. No infections. No unusual bleeding or bruising. She denies any other changes in her health. Her medications include fentanyl patch hyoscyamine morphine a multivitamin Zofran oxycodone effexor - Patient Self-Reported Symptoms SR Constitution: Weight loss/gain, Fatigue/Malaise, Night Sweats SR ears, nose, mouth, throat issues: Congestion SR respiratory issues: Cough, Mucous SR Cardiovascular issues: Dizzy/lightheaded SR Skin issues: Skin rash or itching SR Gastrointestinal issues: Diarrhea, Constipation, Abdominal pain SR Genitourinary issues: Incontinence SR Musculoskeletal issues: Back or neck pain, Bone pain SR Neuro issues: Headache, Lightheaded/dizzy Home Medications and Allergies Home Medications Medication Instructions Recorded Confirmed Type [Probiotics] 1 cap/day PO DAILY #0 06/05/16 06/29/19 History [CBD 3%] 1 applic TOPICAL PRN PRN #0 09/16/16 06/29/19 History caffeine [No Doz] 100 mg PO QDAY #0 11/06/16 06/29/19 History morphine concentrate 0.1 - 0.5 mg PO PRN PRN #0 03/12/17 06/29/19 History oxycodone 2 - 5 mg PO Q6HP PRN #0 03/12/17 06/29/19 History [DE LA ROSA LAXATIVE] 500 mg PO Q DAY #0 11/28/17 06/29/19 History multivitamin [Multiple Vitamins] 2 tab PO QDAY #0 11/28/17 06/29/19 History simethicone [Gas-X Extra Strength] 125 mg PO DAILY #0 11/28/17 06/29/19 History venlafaxine [Effexor XR] 37.5 mg PO QDAY #0 11/28/17 06/29/19 History fentanyl 75 patch TRANSDERMAL Q72H 02/09/18 06/29/19 History Biotene Moisturizing Mouth 1 applic DENTAL PRN PRN 06/03/18 06/29/19 History TENS units 06/03/18 09/02/18 History aluminum hydrox-magnesium carb 15 ml PO TID-QID PRN 06/03/18 06/29/19 History [Gaviscon] hyoscyamine sulfate 0.125 mg SUBLINGUAL BID-QID PRN 06/03/18 06/29/19 History ondansetron 4 mg PO TID PRN 06/03/18 06/29/19 History Allergies Allergy/AdvReac Type Severity Reaction Status Date / Time latex Allergy Mild RASH Verified 06/03/18 11:44 barium iodide Allergy Unknown CT SCAN Verified 06/03/18 11:44 CONTRAST erythromycin base Allergy Unknown OPHTH OINT Verified 06/03/18 11:44 methocarbamol AdvReac Mild HEADACHE Verified 06/03/18 11:44 tramadol AdvReac Mild HEADACHE Verified 06/03/18 11:44 CHLORAHEXADINE AND CHLORAPREP Allergy Unknown RASH Uncoded 04/04/18 09:00 Exam Vital signs: Vital Signs Temp Pulse Resp BP Pulse Ox 06/29/19 15:10 98.5 F 78 20 140/78 96 Intake and Output 06/28/19 06/29/19 06/29/19 23:59 07:59 15:59 Other: Weight 40 kg Patient Weight 06/29/19 23:59 Weight 40 kg - Constitutional positive no acute distress, positive thin - Routine HEENT Exam Head: Present: normocephalic, atraumatic Eye: Present: EOMI, PERRL. Absent: conjunctival icterus, scleral injection ENT: Present: mucous membranes moist, oropharynx clear - Routine Neck Exam Present: supple. Absent: lymphadenopathy - Routine Respiratory Exam Present: Clear to auscultation bilaterally. Absent: rales, wheezes - Routine Cardiovascular Exam Present: RRR, S1, S2. Absent: murmur - Routine Abdominal Exam Present: soft, normoactive bowel sounds. Absent: tenderness, organomegaly Comments: She has a paddle megaly extending down to the level of the umbilicus. The sple en extends down to the same level or slightly farther. - Routine Extremities Exam Absent: cyanosis, clubbing, edema - Routine Back/Spine Exam Back/Spine: Absent: vertebral tenderness - Routine Skin Exam Present: intact. Absent: petechiae, rash - Routine Neurological Exam Present: alert, oriented X3 - Routine Psychiatric Exam Present: normal affect, normal thought process Results - Imaging Additional studies: Procedures Esophagogastroduodenoscopy [EGD] with closed biopsy (07/11/14) Injection or infusion of other therapeutic or prophylactic substance (08/16/14) Assessment and Plan (1) Myelofibrosis Problem details: 72-year-old woman with myelofibrosis and splenomegaly. Her blood counts are stable and she is not requiring transfusions. She does have significant bony pain as well as splenomegaly and constitutional symptoms. She will continue with her pain medications. She has questions about a new drug that is been approved by the FDA called fedratinib. This is apparently shown response rate of about 30-40% effectiveness an reducing the spleen size in improving symptoms in patients with myelofibrosis. Side effects appear to be similar to Jakafi with anemia, GI side effects, elevated liver function tests being fairly common. In addition it does have risk for Wernikes-like encephalitis. She does not feel like her symptoms are severe enough to warrant systemic therapy. She will return to clinic in about 3-4 months for follow-up but sooner should the need arise. Current visit: No Status: Acute
== END ==
PROVIDERS: Family Provider Internal Medicine; PCP Internal Medicine
DX: D47.3 Essential (hemorrhagic) thrombocythemia (principal); D75.81 Myelofibrosis; R16.1 Splenomegaly, not elsewhere classified
CPT/HCPCS: 99214

== ENCOUNTER → 2019-07-06 16:23 | Outpatient (CLI) | payer MEDICARE, SELFPAY ==
[2019-07-06 16:44] LABS: Hematocrit 31.8 % (36-46); Hemoglobin 10.8 g/dL (12.0-16.0); Mean Corpuscular HGB Conc 33.8 % (30-36); Mean Corpuscular Hemoglobin 27.4 PG (26-34); Mean Corpuscular Volume 81.2 fL (80-100); Platelet Count 552 X10^3/uL (150-400); Red Blood Cell Count 3.92 X10^6/uL (4.0-5.2); Red Cell Distribution Width 18.5 % (11.6-14.8); White Blood Cell Count 8.2 X10^3/uL (4.5-11.0)
[2019-07-06 16:48] LABS: Add Manual Diff / Slide Review YES
[2019-07-06 16:51] LABS: Alanine Aminotransferase 19 IU/L (9-52); Albumin 4.3 g/dL (3.5-5.0); Albumin Globulin Ratio 1.5 (1.0-2.8); Alkaline Phosphatase 84 U/L (38-126); Aspartate Aminotransferase 28 IU/L (14-36); BUN Creatinine Ratio 23.3 (6-22); Bilirubin Total 1.2 mg/dL (0.2-1.3); Blood Urea Nitrogen 14 mg/dL (7-17); Calcium 9.3 mg/dL (8.4-10.2); Carbon Dioxide 32 mmol/L (22-32); Chloride 97 mmol/L (98-107); Estimated Glomerular Filt Rate > 60.0 mL/min (>60); Globulin 2.9 g/dL (1.7-4.1); Glucose 120 mg/dL (80-110); HEMOLYSIS < 15 (0-50); Sodium 135 mmol/L (137-145); Total Protein 7.2 g/dL (6.3-8.2)
[2019-07-06 17:13] LABS: Neutrophils Absolute Manual 3854 /uL (3000-5900); Nucleated Red Blood Cells 2 #/Diff; Poikilocytosis 2+; Tear Drop Cells 2+; Total Cells Counted 100
[2019-07-06 17:14] LABS: Platelet Morphology Comment NOTE
== END ==
PROVIDERS: PCP Internal Medicine
DX: D47.3 Essential (hemorrhagic) thrombocythemia (principal); D75.81 Myelofibrosis
CPT/HCPCS: 36415; 80053; 85025

== ENCOUNTER → 2020-03-13 14:32 | Outpatient (CLI) | payer OTHER, MEDICARE, SELFPAY ==
[2020-03-13 15:36] LABS: Hematocrit 30.4 % (36-46); Hemoglobin 10.8 g/dL (12.0-16.0); Mean Corpuscular HGB Conc 35.4 % (30-36); Mean Corpuscular Hemoglobin 29.3 PG (26-34); Mean Corpuscular Volume 82.7 fL (80-100); Platelet Count 679 X10^3/uL (150-400); Red Blood Cell Count 3.68 X10^6/uL (4.0-5.2); Red Cell Distribution Width 17.8 % (11.6-14.8); White Blood Cell Count 9.2 X10^3/uL (4.5-11.0)
[2020-03-13 15:37] LABS: Add Manual Diff / Slide Review YES
[2020-03-13 15:41] LABS: BUN Creatinine Ratio 30.2 (6-22); Blood Urea Nitrogen 16 mg/dL (7-17); Calcium 9.4 mg/dL (8.4-10.2); Carbon Dioxide 31 mmol/L (22-32); Chloride 99 mmol/L (98-107); Estimated Glomerular Filt Rate > 60.0 mL/min (>60); Glucose 81 mg/dL (80-110); HEMOLYSIS < 15 (0-50); Potassium 4.8 mmol/L (3.4-5.1); Sodium 136 mmol/L (137-145); Uric Acid 3.7 mg/dL (2.5-6.2)
[2020-03-13 16:09] LABS: Neutrophils Absolute Manual 4600 /uL (3000-5900); Poikilocytosis 2+; Tear Drop Cells 2+; Total Cells Counted 100
[2020-03-13 16:10] LABS: Platelet Estimate Increased on smear; Polychromasia 1+
== END ==
PROVIDERS: PCP Internal Medicine; Referring Provider Family Medicine; Visit Provider Family Medicine
DX: D47.1 Chronic myeloproliferative disease (principal)
CPT/HCPCS: 80048; 84550; 85025

== ENCOUNTER → 2020-07-31 16:19 | Outpatient (ROUT) | payer OTHER, MEDICARE, SELFPAY ==
[2020-07-31 16:33] LABS: Add Manual Diff / Slide Review YES; Hematocrit 29.6 % (36-46); Hemoglobin 9.7 g/dL (12.0-16.0); Mean Corpuscular HGB Conc 32.7 % (30-36); Mean Corpuscular Volume 82.5 fL (80-100); Platelet Count 521 X10^3/uL (150-400); Red Blood Cell Count 3.58 X10^6/uL (4.0-5.2); Red Cell Distribution Width 18.3 % (11.6-14.8); White Blood Cell Count 7.1 X10^3/uL (4.5-11.0)
[2020-07-31 16:56] LABS: Alanine Aminotransferase 20 IU/L (<35); Albumin 3.8 g/dL (3.5-5.0); Albumin Globulin Ratio 1.4 (1.0-2.8); Alkaline Phosphatase 90 U/L (38-126); Aspartate Aminotransferase 29 IU/L (14-36); BUN Creatinine Ratio 27.5 (6-22); Bilirubin Total 1.2 mg/dL (0.2-1.3); Blood Urea Nitrogen 14 mg/dL (7-17); Calcium 8.9 mg/dL (8.4-10.2); Carbon Dioxide 34 mmol/L (22-32); Chloride 98 mmol/L (98-107); Estimated Glomerular Filt Rate > 60.0 mL/min (>60); Globulin 2.8 g/dL (1.7-4.1); Glucose 84 mg/dL (80-110); HEMOLYSIS < 15 (0-50); Potassium 4.4 mmol/L (3.4-5.1); Sodium 135 mmol/L (137-145); Total Protein 6.6 g/dL (6.3-8.2)
[2020-07-31 17:09] LABS: Neutrophils Absolute Manual 3266 /uL (3000-5900); Nucleated Red Blood Cells 3 #/Diff; Platelet Estimate Increased on smear; Total Cells Counted 100
[2020-07-31 17:10] LABS: Platelet Morphology Comment NOTE; Polychromasia 1+; Tear Drop Cells 2+
== END ==
PROVIDERS: PCP Internal Medicine; Visit Provider Family Medicine
DX: D47.1 Chronic myeloproliferative disease (principal)
CPT/HCPCS: 80053; 85025

== ENCOUNTER → 2021-05-11 14:46 | Outpatient (CLI) | payer OTHER, MEDICARE, SELFPAY ==
[2021-05-11 15:44] LABS: Hematocrit 33.2 % (36-46); Hemoglobin 10.9 g/dL (12.0-16.0); Mean Corpuscular HGB Conc 32.7 % (30-36); Mean Corpuscular Hemoglobin 26.6 PG (26-34); Mean Corpuscular Volume 81.5 fL (80-100); Platelet Count 661 X10^3/uL (150-400); Red Blood Cell Count 4.08 X10^6/uL (4.0-5.2); Red Cell Distribution Width 18.1 % (11.6-14.8)
[2021-05-11 15:46] LABS: Add Manual Diff / Slide Review YES
[2021-05-11 15:47] LABS: BUN Creatinine Ratio 40.5 (6-22); Blood Urea Nitrogen 17 mg/dL (7-17); Calcium 9.1 mg/dL (8.4-10.2); Carbon Dioxide 31 mmol/L (22-32); Chloride 100 mmol/L (98-107); Estimated Glomerular Filt Rate > 60.0 mL/min (>60); Glucose 89 mg/dL (80-110); HEMOLYSIS 15 (0-50); Potassium 4.3 mmol/L (3.4-5.1); Sodium 134 mmol/L (137-145)
[2021-05-11 16:23] LABS: Neutrophils Absolute Manual 5610 /uL (3000-5900); Nucleated Red Blood Cells 3 #/Diff; Total Cells Counted 100
[2021-05-11 16:24] LABS: Anisocytosis 2+; Smudge Cells 2+
== END ==
PROVIDERS: PCP Family Medicine; Referring Provider Family Medicine; Visit Provider Family Medicine
DX: Z13.228 Encounter for screening for other metabolic disorders (principal); R68.89 Other general symptoms and signs
CPT/HCPCS: 36415; 80048; 85007; 85025

== ENCOUNTER → 2021-06-07 16:12 | Outpatient (ROUT) | payer OTHER, MEDICARE, SELFPAY ==
[2021-06-07 16:16] LABS: Bacteria Urine None Seen
[2021-06-07 16:17] LABS: Appearance Urine UA SL CLOUDY; Bilirubin Urine UA NEGATIVE (NEGATIVE); Color Urine UA YELLOW; Glucose Urine UA NEGATIVE (Negative); Ketones Urine UA TRACE (NEGATIVE); Leukocyte Esterase Urine UA TRACE (NEGATIVE); Nitrite Urine UA NEGATIVE (Negative); Occult Blood Urine UA 3+ (Negative); Protein Urine UA 2+ (Negative); Urobilinogen Urine UA 0.2 E.U./dL (0.2)
[2021-06-07 16:18] LABS: pH Urine UA 5.5 (4.5-8.0)
[2021-06-07 16:22] LABS: Culture Indicated Urine Specimen Cultured; Mucus Urine 1+ (Negative); RBC Urine 10-30/HPF (0-5/HPF); Squamous Epithelial Cell Urine 1-5 /HPF (0-5/HPF); WBC Urine 5-10/HPF (0-5/HPF)
== END ==
PROVIDERS: PCP Family Medicine; Visit Provider Family Medicine
DX: D47.1 Chronic myeloproliferative disease (principal)
CPT/HCPCS: 81001; 87086